=== PATIENT | male | born 1940 | race Caucasian/White ===

== ENCOUNTER 2016-09-17 00:29 | Day surgery (SDC) | payer MEDICARE, OTHER ==
[2016-09-17] VITALS (12 sets, daily range): BP systolic 123–161; BP diastolic 56–69; PULSE 68–77; RESP 10–12; O2SAT 95–98
[~2016-09-17] VITALS: Ht 172.7 cm; Wt 93.0 kg
[~2016-09-17 00:29] MED LIST: FINA5TAB9 PO; MAGN64TA7 PO; TAMS0.4C98 PO
[2016-09-17] MEDS ORDERED: 0.9% Sodium Chloride 1,000 ML IV ONE (07:13)
[2016-09-17] MEDS ORDERED: Heparin 1,000 Units/500 mL NS Premix IV ONE (08:13)
[2016-09-17] MEDS ORDERED: Heparin 5,000 Units/500 mL NS Premix IV ONE (08:13)
[2016-09-17] MEDS ORDERED: Sodium Chloride LOK Flush 10 mL Syringe IVFLUSH SCH (08:30)
--- NOTE | 2016-09-17 09:34 | NUR ---
Admitted for a heart cath today by Dr Wilkins. Plan is to do a Right Radial access today. NSR with frequent PVC's - Trigmeny. Supported by his "Kalyani".
[2016-09-17] MEDS ORDERED: Nitroglycerin 50,000 mcg/250 mL D5W Premix IV ONE (09:39)
[2016-09-17] MEDS ORDERED: Verapamil 2.5 mg/mL 2 mL Inj ONE (09:40)
[2016-09-17] MEDS ORDERED: Heparin 1,000 Unit/mL 10 mL Inj ONE (09:40)
[2016-09-17] MEDS ORDERED: fentaNYL-PF 50 mCg/mL 2 mL Inj ONE (09:53)
--- NOTE | 2016-09-17 14:44 | NUR ---
Returned from laboratory [facility] at 1100 - with TR band with 13cc of air in TR band. Incremental removal of air started at 1400 - with no notable hematoma - pt states wrist feels a "bit bruised"> Following a trip to the bathroom Right radial puncture site had a very small bump - compression held for 3 minutes. Site has not changed in 15 minutes - OK for D/C home. Right before D/C patient complained to his that he had a POZO - pt requested plain Tylenol 650 mg PO. Instructed patient and patient's , "Kalyani" to contact Dr Wilkins if the POZO worsened or continued without improving. D/C instructions reviewed with patient and patient's , "Kalyani". DC from [facility] at 1440.
--- NOTE | 2016-09-18 09:48 | CS94 ---
[address] [address] DIAGNOSTIC CARDIAC CATHETERIZATION PATIENT: CLAIRE PRINCE : 1940 MR#: [id number] ADMIT: 09/17/2016 JOB ID: [id number] SERVICE DATE: 09/17/2016 CHIEF COMPLAINT: Shortness of breath. HISTORY OF PRESENT ILLNESS: The patient is a delightful 76-year-old man with frequent PVCs and associated cardiomyopathy. He is here for left heart catheterization to determine whether ischemia is playing a role. PROCEDURES PERFORMED: 1. Left heart catheterization -- selective coronary angiograms. 2. Left ventricular end-diastolic pressure recording. 3. Right radial vascular access under ultrasound guidance. 4. TR band closure. METHOD: Following informed consent, the patient was prepped and draped in the usual sterile fashion. A 6-Finnish sheath was placed in the right radial artery. Sheath placement was confirmed. Under ultrasound guidance at this point in time, JL3.5 was attempted to engage left main. It was very technically difficult and subsequently, the catheter that worked was a 6-Finnish Altha catheter. A JR4 was successfully used to engage the right coronary artery. Hand injection with craniocaudal angulation was used to obtain selective coronary angiograms. All exchanges were performed over a wire. FINDINGS: Right coronary artery was engaged first. It was a dominant vessel. It gives rise to RV branch and PDA and a big posterolateral branch. There are no obstructive lesions visualized. The left main is a very short vessel. There is excellent blow-back and no dampening on engagement. It gives rise to LAD and circumflex. LAD is a large vessel. It gives rise to a big first diagonal branch, medium-sized second diagonal branch. There is like a 40% mid LAD lesion that is after the takeoff of the first diagonal branch. It is best appreciated on AP chordal view. Otherwise, no disease is visualized. Circumflex is a nondominant vessel. It gives rise to a big first OM branch that is a bifurcating vessel and a medium-sized second OM. There is no obstructive disease seen whatsoever. HEMODYNAMICS: Left ventricular end-diastolic pressure was 35 mmHg but difficult to gauge due to PVCs in a pattern of bigeminy. Aortic pressure was 134/74, and there was no evidence of aortic stenosis based on pullback. IMPRESSION: 1. A 40% mid left anterior descending but cardiomyopathy appears out of proportion to the coronary artery disease. Therefore, cardiomyopathy is likely nonischemic. 2. Frequent premature ventricular contractions in a pattern of bigeminy or trigeminy throughout the case. 3. Elevated filling pressure. PLAN: Start metoprolol succinate 25 mg daily. Start lisinopril 2.[address] mg daily[address]er to Dr. Tse for consideration of PVC ablation. Thank you for the opportunity to evaluate this patient.
[2016-10-15] MEDS ORDERED: LISI2.5T PO (15:40)
[2016-10-15] MEDS ORDERED: METO25TA3 PO (15:40)
[2016-10-15] MEDS ORDERED: MAGN100T5 PO (15:40)
== END 2016-09-17 23:59 | disposition home or self-care (01) ==
LOC: SOUO 00:29
PROVIDERS: ATTEND Internal Medicine
DX: I42.9 Cardiomyopathy, unspecified (principal); I25.10 Atherosclerotic heart disease of native coronary artery without angina pectoris; I49.3 Ventricular premature depolarization
CPT/HCPCS: 36415; 85025; 85610; 93458; 99152; 99153; C1769; C1887; C1894; J1200; J1644; J2060; J2250; J3010; J7030; Q9967

== ENCOUNTER 2016-10-16 01:07 | Day surgery (SDC) | payer MEDICARE, OTHER ==
[~2016-10-16] VITALS: Ht 172.7 cm; Wt 94.9 kg
[2016-10-16] VITALS (11 sets, daily range): BP systolic 119–146; BP diastolic 54–95; PULSE 64–81; RESP 12–20; O2SAT 96–97
[~2016-10-16 01:07] MED LIST changes: +LISI2.5T PO; +MAGN100T5 PO; -MAGN64TA7 PO; +METO25TA3 PO
[2016-10-16 09:35] LABS: BASOPHILS % (AUTO) 0.3 % (0-3); EOSINOPHILS % (AUTO) 3.6 % (0-5); MONOCYTES % (AUTO) 7.8 % (4-12); Mean Corpuscular Hemoglobin 30.9 pg (27.0-35.0); Mean Corpuscular Volume 89.2 fL (81-100); NEUTROPHILS % (AUTO) 73.8 % (40-74); Platelet Count 143 bil/L (150-400)
[2016-10-16 09:50] LABS: INR 1.09 ratio
[2016-10-16] MEDS ORDERED: Heparin 1,000 Unit/mL 10 mL Inj ONE ×2 (10:03→11:38)
[2016-10-16] MEDS ORDERED: 0.9% Sodium Chloride 0 ML ONE (10:03)
[2016-10-16] MEDS ORDERED: Heparin 5,000 Units/500 mL NS Premix IV ONE (10:03)
[2016-10-16] MEDS ORDERED: fentaNYL-PF 50 mCg/mL 2 mL Inj ONE ×2 (10:35→12:21)
[2016-10-16] MEDS ORDERED: 0.9% Sodium Chloride 1,000 ML ONE (11:39)
[2016-10-16] MEDS ORDERED: Ondansetron 2 mg/mL 2 mL Inj IVPUSH PRN (12:40)
--- NOTE | 2016-10-16 17:22 | NUR ---
Discharge instructions reviewed with patient and spouse.Pt has been ambulatory x 25 minutes. Right groin remains intact, pt left ambulatory.
--- NOTE | 2016-10-17 00:48 | PROCED ---
[address] [address] PROCEDURE NOTE PATIENT: CLAIRE PRINCE : 1940 MR#: [id number] ADMIT: 10/16/2016 JOB ID: [id number] DATE OF SERVICE: 10/16/2016 PREOPERATIVE DIAGNOSIS(ES): 1. 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 2. Consequent nonischemic cardiomyopathy with ejection fraction 25-30%. POSTOPERATIVE DIAGNOSIS(ES): 1. Para-Hisian premature ventricular contraction. 2. Consequent nonischemic cardiomyopathy. PROCEDURES PERFORMED: 1. Comprehensive electrophysiology study including coronary sinus pacing. 2. Three-dimensional electroanatomic mapping using the CARTO 3 system. 3. Fluoroscopy. SURGEON: Barney Tse MD CORPORATE GIVING MANAGER: Eliezer Johnson. DOROTA Bryant. ANESTHESIA: Bolus dosing Versed and fentanyl were utilized for an appropriate level of sedation. INDICATION: The patient is a pleasant, 76-year-old man, with high-frequency monomorphic PVCs and consequent cardiomyopathy. He has had coronary angiography which failed to reveal any significant coronary artery disease. After discussion of risks and benefits of catheter based mapping ablation for his PVCs, he has opted to proceed. PROCEDURAL DESCRIPTION: Following informed consent, the patient was taken to the EP laboratory in a fasting nonsedated state, where he was prepped and draped in usual sterile fashion. The right inguinal region was infiltrated with 1% lidocaine, then using modified Seldinger technique, one 8, one 7, and one 6-[place]otswan[place] sheath were inserted in the right femoral vein. Under fluoroscopic guidance, a deflectable decapolar catheter was advanced to the coronary sinus with the most proximal bipoles at the os of the sinus. A Velvet quadripolar catheter was advanced to the RV apex. A comprehensive electrophysiology study was undertaken with right atrial pacing and recording, right ventricular pacing and recording catheter an FJ bidirectional irrigated SmartTouch ablation catheter was brought to the field and advanced to the RV outflow tract. A three-dimensional electroanatomic map of the RV outflow tract was created using the CARTO 3 system. The patient was having frequent clinical PVCs during the case. This was a left bundle PVC with an inferior axis, upgoing in lead one, downgoing in aVL and transitioning at V2 to V3. The PVC was actually biphasic in lead V2, and was quite narrow. Both pace mapping and activation mapping was undertaken, ultimately showing the area of earliest activation with highly fractionated electrogram in the posterior septal area with an RV outflow tract. Pace mapping was a 12 for 12 match. A His cloud was created and showed the region to be quite close to the area of earliest activation. I decided to not place ablation lesions here given the risk of conduction, system injury and need for pacing. Instead, we will approach medicinal therapy for some time. All catheters and sheaths were removed. Manual pressure was held for hemostasis. The patient was taken to the [facility] for monitoring, bedrest, and discharge. COMPLICATIONS: None. ESTIMATED BLOOD LOSS: Negligible. FINDINGS: 1. Baseline rhythm was sinus with an RR interval of 813 msec, PA interval msec, QRS 75 msec. 2. Intracardiac intervals: AH interval 76 msec, HV 48 msec. 3. Retrograde conduction VA Wenckebach is seen at 340 msec. Atrial activation was concentric. 4. Antegrade conduction: AV Wenckebach 400 msec. 5. Para-Hisian PVC as described above. Not the subject of ablation. IMPRESSION: Para-Hisian premature ventricular contraction. PLAN: 1. Bedrest x4 hours. 2. Resume metoprolol. 3. Add flecainide 50 mg twice daily. 4. EKG in one week. 5. Follow up with me in the clinic in 3-4 weeks. ATTENDING STATEMENT: Barney Tse MD, was present for and has supervised/performed all aspects of this procedure.
== END 2016-10-16 23:59 | disposition home or self-care (01) ==
LOC: SOUO 01:07
PROVIDERS: ATTEND Internal Medicine Cardiovascular Disease
DX: I49.3 Ventricular premature depolarization (principal); I42.8 Other cardiomyopathies
CPT/HCPCS: 36415; 80048; 85025; 85610; 93005; 93613; 93620; 93621; 99152; 99153; C1730; C1732; J1644; J2250; J3010; J7030